=== PATIENT | female | born 1985 | race Caucasian/White ===

== ENCOUNTER 2024-12-13 21:42 | Emergency (ER) | payer MEDICAID ==
[~2024-12-13] VITALS: Ht 175.3 cm; Wt 136.4 kg
--- NOTE | 2024-12-13 23:46 | Physician Documentation ---
History of Present Illness ~ Chief Complaint: ETOH Stated Complaint: WITHDRAWLS Time Seen by MD: 23:13 OK to notify your PCP?: Yes Source: patient Mode of Arrival: POV Exam Limitations: no limitations HPI Miesha is a 39-year-old female who reports drinking alcohol heavily for the past week and her last drink was yesterday. She states that she has had delirium tremens in the past from quitting drinking but has not had any seizures. She reports 1 episode of vomiting today and is complaining of her hand shaking and feeling anxious. She denies any seizures, hallucinations, or headaches. She is looking to quit drinking and wants to be cleared for rehab. Tetanus within 5 years?: No Medication Reconciliation Allergies: Coded Allergies: lisinopril (Unverified Allergy, Unknown, 12/13/24) Scheduled PRN Diazepam (Valium), 1 TAB PO PRN PRN for for anxiety/agitation Review of Systems All Other Systems at this time: Reviewed and Negative Physical Exam Vital Signs: RN Vital Signs have been reviewed: Yes, Temperature: 98.4, Source: Oral, Heart Rate: 101, Respiratory Rate: 20, BP: 154/92, Pulse Oximetry: 99, Weight: 136.360 Pulse Oximetry Reflects: adequate oxygenation Physical Exam General: Alert, no apparent distress. HEENT: PERRL, EOMI, no injection, moist mucous membranes. Neck: Full range of motion. Respiratory: Lungs clear, no respiratory distress. Chest: No accessory muscle use. Cardiovascular: Regular rate and rhythm, no murmurs. Gastrointestinal: Soft, nontender, nondistended. Bowels sounds present. Extremities: Normal range of motion, no deformity. Bilateral hand tremors. Neurologic: Oriented x4. Psychiatric: Anxious. Skin: Normal color, warm and dry. No edema, no ecchymosis. Progress Progress Note Doctor Marko: December 14, 2024 12 17 I received a call from the pharmacy on this patient they are asking if we are aware she has a [place] prescription. She was seen and discharged from here with the Valium taper. I discussed with the pharmacist that I disagree with the Valium prescription given multiple risk factors including heavy alcohol use and [place] she is high-risk for respiratory depression. I resected the Valium prescription and recommended that the pharmacist discuss any further medications with her [facility] provider or PCP Results/Orders Results/Orders Vital Signs 12/13/24 12/13/24 12/14/24 21:43 23:43 01:13 Temp 98.4 98.6 Pulse 101 118 117 Resp 20 18 B/P (MAP) 154/92 171/94 (119) 169/103 Pulse Ox 99 96 96 O2 Flow Rate 0 Medical Decision Making Findings Miesha is a 39-year-old female who reports drinking heavily for the past week but then stopping around noon yesterday. He reports having 1 episode of vomiting and is complaining of feeling anxious and her hand tremoring. She is requesting to safely withdrawal from her alcohol so she can be cleared for rehab. Her heart rate was elevated on arrival and remained elevated throughout her stay and at discharge which is to be expected during the withdrawal process and not of concern. She was given 10 mg of Valium for which she states she feels much better already. She was given a 4 day Valium taper pack prescription to help her with the withdrawal process. She was instructed to follow up with her primary care provider in 3 days. She is cleared for rehab. She should return back here for any new or worsening symptoms and she agrees to this plan. She denies any HI or SI. Differential Dx:Considerations: Intoxication - ETOH, Confusion, Thiamine deficiency Departure Disposition: HOME / SELF CARE / HOMELESS Impression: Primary Impression: Alcohol withdrawal syndrome Condition: Stable Additional Instructions: Please take the Valium as prescribed to help with your withdrawal process over the next 4 days. You have been giving a dose tonight. Follow up with her primary care provider in the next 3 days and return back here for any new or worsening symptoms. Please stop drinking alcohol. You are cleared for rehab. Referrals: NO PRIMARY CARE PROVIDER (PCP) Prescriptions Diazepam (Valium) 10 Mg Tablet 1 TAB PO PRN PRN for for anxiety/agitation for 4 Days, #10 TAB 0 Refills DAY 1: 1 TAB BY MOUTH EVERY 6 HOURS DAY 2: 1 TAB BY MOUTH EVERY 8 HOURS DAY 3: 1 TAB BY MOUTH EVERY 12 HOURS DAY 4: 1 TAB BY MOUTH AT BEDTIME Prov: PRATIMA BOLTON 12/13/24 Education Educated: Patient Educated regarding: diagnosis, treatment, prognosis, need for follow up Signature Scribe Signature: . Attestation: Scribed for Pratima Bolton Deputy Sheriff Generalist by Pratimakarol Avina NP . 12/14/24 01:40 PRATIMA BOLTON December 13, 2024 23:46 MADI ELLIS MD December 14, 2024 12:18
[2024-12-13] MEDS: diazepam 5mg tablet PO ONE (23:47)
[2024-12-13] MEDS ORDERED: DIAZ-546 PO (23:48)
[2024-12-14 01:13] VITALS: BP 169/103; PULSE 117; RESP 18; TEMP 98.6; O2SAT 96
== END 2024-12-14 01:17 | disposition home or self-care (01) ==
LOC: ER 21:43
DX: F10.939 Alcohol use, unspecified with withdrawal, unspecified (principal); R11.10 Vomiting, unspecified; F41.9 Anxiety disorder, unspecified; Z88.8 Allergy status to other drugs, medicaments and biological substances; Y90.9 Presence of alcohol in blood, level not specified
CPT/HCPCS: 99283